=== PATIENT | male | born 1985 | race Caucasian/White ===

== ENCOUNTER 2024-01-03 10:04 | Emergency (ER) | payer OTHER, SELFPAY ==
[2024-01-03 10:10] VITALS: BP 148/97
--- NOTE | 2024-01-03 10:45 | ED.GENMED ---
History of Present Illness
General
Chief Complaint: Rabies
Source: patient
Time Seen by Provider: 01/03/24 10:16
History of Present Illness
History of Present Illness:
38-year-old male with no significant past medical history presents to the emergency department for evaluation for second rabies vaccine. Patient was on vacation in [place] when he was feeding a small stray kitten food and was found accidentally bit
on the left index finger. Patient did seek medical attention and states he was given the rabies and tetanus vaccine but no immunoglobulin. Patient also notes he was not given any antibiotic but states that his finger feels fine and is without any
signs of infection. This injury occurred on FridayDecember 28 and he received the first vaccine on December 29. Patient was told to come to the ER when he got home on January 03, 2020 first and so he presents to the ER for the second
vaccine.
Past History
Past History
ED Past Medical History: None
ED Past Surgical History: None
Social History
Tobacco: Non-smoker
Alcohol: Occasional
Drug: None
Personal:
Living: with family
Employment: Employed
Review of Systems
Review of Systems
All Other Systems: ROS reviewed and negative except as documented in HPI and ROS
Phy Exam
Physical Exam
Physical Exam:
GENERAL: Alert , in no apparent distress
EYE: conjunctiva clear
Head: Normocephalic atraumatic
NECK: Supple,
ENT: mmm.
LUNGS: no acute respiratory distress
NEUROLOGICAL: Alert and oriented
SKIN: Warm and dry, left index finger without any erythema or skin breakdown/signs of infection
MUSCULOSKELETAL: well perfused.
PSYCH: Normal and appropriate interaction.
Scores
Heart Failure Risk
Heart Failure Risk Score: Not Applicable
Heart Score for Chest Pain Patients
STEMI patient?: Not applicable
Withdrawal Assessment of Alcohol
Withdrawal Assessment Completed?: Not applicable
Course
Orders/Labs/Results
Orders:
Orders
01/03/24 10:30
Rabies Vaccine (Pcec)/Pf [Rabavert Rabies Vacc W-Diluent] 2.5 unit IM .ONCE ONE
01/03/24 11:21
Rabies Immune Globulin/Pf [HyperRAB] 1,650 unit IM NOW STA
Vital Signs
Initial and Last Documented VS:
Initial Vital Signs
Temp Pulse Resp BP Pulse Ox
98 F 80 16 148/97 98
01/03/24 10:10 01/03/24 10:10 01/03/24 10:10 01/03/24 10:10 01/03/24 10:10
Last Documented Vital Signs
Temp Pulse Resp BP Pulse Ox
98 F 80 16 148/97 98
01/03/24 10:10 01/03/24 10:10 01/03/24 10:10 01/03/24 10:10 01/03/24 10:10
MDM/Problems Addressed
MDM/Problems Addressed:
Patient presenting to the ER for second rabies vaccine after being bitten by a stray kitten while on vacation 5 days ago. Patient does have a printout of the vaccine and the dates that he was supposed to get his second third and fourth
vaccinations. Patient received Abhayrab vaccine while in [place]. I explained to the patient that it is unclear as to why he would not have gotten the immunoglobulin as this would be important as part of the rabies vaccination series. Patient was
adamant he did not get this medication. I will discuss with pharmacy and infectious disease to help determine treatment plan moving forward.
*Pulse Oximetry
Patient hypoxic: no
*Critical Care Note
Total Time (30-74mins, 75-104mins- exclusive of procedures): Not Applicable
Patient Management
Discussion with other providers: Animal Husbandman
Escalation/DeEscalation of care consider admission/obs:
Case was discussed with infectious pharmacy. Per infectious disease we should start patient's vaccine series over and today should be this of his day 0. She would recommend doing the immune globulin and initiation of RabAvert here. Patient was
given a prescription for outpatient infusion center for the remaining days of his rabies series and provided with the correct dates that he should resume his series on. Patient expressed understanding. We discussed antibiotics however patient
states there is no sign of infection and would like to defer antibiotics at this time. Otherwise stable for discharge home.
ED Attending Note
-
Portions of this chart may have been created with voice recognition software.� Occasional wrong word or��sound alike� substitutions may have occurred due to the inherent limitations of voice recognition software.
Discharge Plan
Departure
Patient Disposition: Home (Routine Discharge)
Date of Disposition: 01/03/24
Time of Disposition: 10:45
Patient with high blood pressure during this ER visit?: Yes
Discharge Problem:
Encounter for immunization
Instructions: Rabies Vaccine CDC Vaccine Information Statement (VIS)
Stand Alone Forms: Rabies Vaccine Post Exp Dosing
Interventions
Interventions:
*Risk Screen - Suicide Last Done: 01/03/24 10:10
*General Assessment Last Done: 01/03/24 10:10
*Neglect/Abuse Screening Last Done: 01/03/24 10:10
ED- Fall Risk Assessment Last Done: 01/03/24 10:49
*ED COVID-19 Vaccine History Last Done: 01/03/24 11:47
*Nursing Disposition Last Done: 01/03/24 11:47
Discharge Date and Time
Discharge Date/Time: 01/03/24 11:47
Print Language: SLOVENIAN
[2024-01-03] MEDS: RABAVERT RABIES VACC W-DILUENT 2.5 UNIT IM (10:52)
[2024-01-03] MEDS: HyperRAB 1650 UNIT IM (11:39)
== END 2024-01-03 11:47 | disposition home or self-care (01) ==
LOC: EMR 10:04
PROVIDERS: EMERGENCY PHYSICIAN Emergency Medicine; FAMILY PHYSICIAN Family Medicine
DX: Z23 Encounter for immunization (principal); S61.251A Open bite of left index finger without damage to nail, initial encounter; W55.01XA Bitten by cat, initial encounter; Z20.3 Contact with and (suspected) exposure to rabies; R03.0 Elevated blood-pressure reading, without diagnosis of hypertension
CPT/HCPCS: 99284; 90471; 96372; 90375; 90675

== ENCOUNTER 2024-01-16 14:44 | Outpatient (RCR) | payer OTHER, SELFPAY ==
[2024-01-06 15:22] VITALS: BP 122/82
[2024-01-06] MEDS: RABAVERT RABIES VACC W-DILUENT 2.5 UNIT IM (15:26)
[2024-01-09 08:30] VITALS: BP 133/75
[2024-01-09] MEDS: RABAVERT RABIES VACC W-DILUENT 2.5 UNIT IM (08:38)
[2024-01-16 14:45] VITALS: BP 132/80
[2024-01-16] MEDS: RABAVERT RABIES VACC W-DILUENT 2.5 UNIT IM (14:59)
== END 2024-01-17 23:59 | disposition home or self-care (01) ==
LOC: OID 14:44
PROVIDERS: ATTENDING PHYSICIAN Emergency Medicine; FAMILY PHYSICIAN Family Medicine
DX: Z23 Encounter for immunization (principal); Z20.3 Contact with and (suspected) exposure to rabies
CPT/HCPCS: 90471; 90675